=== PATIENT | male | born 1985 | race Caucasian/White ===

== ENCOUNTER 2020-06-16 18:14 | Emergency (ER) | payer OTHER, SELFPAY ==
--- NOTE | ~2020-06-16 | CT_ITS ---
EXAMINATION: CT HEAD WITHOUT CONTRAST CLINICAL INFORMATION: Left leg numbness COMPARISON: None TECHNIQUE: Contiguous axial imaging was performed from the skull base to vertex without intravenous administration of contrast. This CT examination was performed using dose optimization techniques as appropriate, variously including the following: *Automated exposure control *Adjustment of mA and/or kV according to patient size (this includes techniques or standardized protocols for targeted exams where dose is matched to indication/reason for exam; i.e. extremities or head) *Use of iterative reconstruction technique DLP: 780 mGy-cm FINDINGS: There is no evidence of acute intracranial hemorrhage or territorial infarction. No abnormal mass effect or midline shift is seen. Griffin to white matter differentiation is well preserved. No extra-axial fluid collections are identified. The ventricles are normal in size. There is no abnormal attenuation within the brain parenchyma. The osseous structures and soft tissues are normal. The mastoid air cells and visualized portions of the paranasal sinuses are well aerated. CT/CT head/brain wo con IMPRESSION: No acute intracranial pathology.
[2020-06-16 18:32] VITALS: BP 147/105; PULSE 87; RESP 18; TEMP 36.8; O2SAT 95; BMI 28.9
--- NOTE | 2020-06-16 19:20 | ECG_ITS ---
Test Reason : WEAKNESS Blood Pressure : / mmHG Vent. Rate : 074 BPM Atrial Rate : 074 BPM P-R Int : 176 ms QRS Dur : 112 ms QT Int : 380 ms P-R-T Axes : 043 050 044 degrees QTc Int : 421 ms Normal sinus rhythm with sinus arrhythmia Normal ECG No previous ECGs available Referred By: Harvey Alejo Electronically Signed By:Kain Joyner
--- NOTE | 2020-06-16 19:24 | ED_ITS ---
HPI - General Adult General Chief complaint: General Medical Stated complaint: numbness in leg Time Seen by Provider: 06/16/20 19:11 Source: patient Mode of arrival: ambulatory Limitations: no limitations History of Present Illness HPI narrative: 35-year-old male otherwise healthy, presented with 4 days of numbness in the left lower extremities but no weakness, patient started to have same feeling on the right lower extremities started since yesterday, patient is able to walk in steady gait, no weakness, only when he go upstairs and downstairs have no feeling how high his leg is going up or down, no drop foot. Declined recent trauma, no low back pain. Patient had back problem from his previous job that improved with physical therapy in the past, patient had no urinary incontinence, no stool incontinence. No fever, no chills, no history of IV drug abuse. Related Data Allergies Allergy/AdvReac Type Severity Reaction Status Date / Time No Known Allergies Allergy Unverified 12/26/19 15:37 Review of Systems Review of Systems: All other systems are reviewed and are negative Constitutional: Reports as per HPI and Reports no additional constitutional co mplaints Eyes: Reports as per HPI and Reports no additional eye complaints Reports system reviewed and no additional complaints, except as documented Cardiovascular: Reports as per HPI and Reports no additional cardiovascular complaints Respiratory: Reports as per HPI and Reports no additional respiratory complaints Gastrointestinal: Reports as per HPI and Reports no additional gastrointestinal complaints Genitourinary: Reports no additional female genitourinary complaints Musculoskeletal: Reports no additional musculoskeletal complaints Skin/Breast: Reports system reviewed and no additional complaints, except as docu Psychiatric: Reports no additional psychiatric complaints Endocrine: Reports no additional endocrine complaints Hematologic/Lymphatic: Reports no additional hematologic/lymphatic complaints Allergic/Immunologic: Reports no additional allergic/immunologic complaints Reports system reviewed and no additional complaints, except as documented and Reports Abnormal speech present [facility] Past Medical History Medical History No known health problems Social History Social History Smoked in Last 30 Days: No Use of substances other than those prescribed or required for medical reasons: Yes Substance Use Type: Marijuana Advance Directives: No Advance Directives Information Provided: Yes Physical Exam Vital Signs: Vital Signs: Last Vital Signs Temp 98.3 F 06/16/20 18:32 Pulse 87 06/16/20 18:32 Resp 18 06/16/20 18:32 BP 147/105 H 06/16/20 18:32 Pulse Ox 95 06/16/20 18:32 Body Mass Index 28.9 Vital signs have been reviewed as appeared to be correct. Blood pressure in the high range.. Heart rate normal. Respiration rate normal. Temperature normal. Oxygen saturation normal. Appearance: Alert. Oriented X3. No acute distress. Head: Normal external exam. Normocephalic. Atraumatic. No Pereira signs noted. No raccoon eyes noted Eyes: PERRLA. EOMI. Conjunctiva and sclera normal. Eyelids normal. ENT: TM's Normal. Pharynx normal. Uvula midline. Moist mucous membranes. No trismus noted. No drooling noted. No muffled voice noted. Neck: Normal inspection. Neck supple. FROM. No adenopathy. Thyroid Normal. No meningeal signs. No neck mass noted. CVS: Normal heart rate and rhythm. Heart sound normal. No murmurs noted. Pulses normal throughout. Respiratory: No respiratory distress. Painless inspiration. Breath sounds normal. No wheezes/rales/rhonchi noted. Chest nontender. No accessory muscle usage noted or decreased air movement noted. Abdomen: Soft and nontender. Bowel sounds normal in all 4 quadrants. No distention noted. No organomegaly noted. No visible injury noted. Back: No CVA tenderness. Full range of motion noted. Skin: Skin warm and dry. Normal skin color. Normal skin turgor. No rashes/lesions/lacerations noted. Extremities: No lower extremity edema. Extremities exhibit normal range of motion. Extremities nontender. Neuro: Oriented X 3. No motor deficit. No sensory deficit. Reflexes normal. NIH Stroke Scale Level of Consciousness: Alert Level of Consciousness Questions: Answers both questions correctly Level of Consciousness Commands: Performs both tasks correctly Best Gaze: Normal Visual: No visual loss Facial Palsy: Normal Motor Arm (Right): No drift Motor Arm (Left): No drift Motor Leg (Right): No drift Motor Leg (Left): No drift Limb Ataxia: Absent Sensory: Normal Best Language: No aphasia Dysarthia: Normal Extinction and Inattention: No abnormality Score: 0 Course Course Course Narrative: 35-year-old male otherwise healthy with normal neuro exam, NIH score is 0. Left lower extremities numbness for 5 days probably peripheral neuropathy related. Will discharge the patient to follow up with outpatient Neurology. Medical Decision Making Lab Data Result diagrams: 06/16/20 20:24 06/16/20 20:24 Labs: Lab Results 06/16/20 06/16/20 06/16/20 Range/Units 20:24 20:24 20:25 WBC 7.8 (4.8-10.8) X10*3/uL RBC 6.10 H (4.60-5.80) X10*6/uL Hgb 17.7 (14.0-18.0) g/dl Hct 50.3 (42-52) % MCV 82.5 (80-98) fL MCH 29.0 (27.0-33.0) pg MCHC 35.2 (31.0-36.0) g/dl RDW 12.5 (11.0-16.0) % Plt Count 260 (160-400) X10*3/uL MPV 10.7 (9.4-12.4) fL Immature Gran % (Auto) 0.4 (0.0-0.4) % Neut % (Auto) 71.5 (45-73) % Lymph % (Auto) 17.6 L (20-40) % [place] % (Auto) 9.1 (2-11) % Eos % (Auto) 0.8 (0-4) % Baso % (Auto) 0.6 (0-2) % Lymph # (Auto) 1.4 (1.2-4.9) X10*3/uL [place] # (Auto) 0.7 (0.1-1.2) X10*3/uL Eos # (Auto) 0.1 (0.0-0.4) X10*3/uL Baso # (Auto) 0.1 (0.0-0.2) X10*3/uL Abs Immat Gran (auto) 0.03 (0.00-0.03) X10*3/uL Absolute Neuts (auto) 5.6 (2.0-8.3) X10*3/uL Absolute Nucleated RBC 0.000 (0.0-0.012) X10*3/uL Nucleated RBC % (auto) 0.0 (0.0-0.2) /100WBC Sodium 140 (135-145) mmol/L Potassium 3.8 (3.3-5.1) mmol/L Chloride 101 (96-108) mmol/L Carbon Dioxide 30 H (22-29) mmol/L Anion Gap 13 (12-20) BUN 13 (9-16) mg/dL Creatinine 1.08 (0.5-1.4) mg/dL Estim Creat Clear Calc 103.2 Estimated GFR > 60 Random Glucose 108 (60-115) mg/dL Calcium 10.2 (8.4-10.2) mg/dL Phosphorus (2.7-4.5) mg/dL Magnesium (1.6-2.6) mg/dL Total Creatine Kinase (38-174) U/L Troponin I High Sens < 3.5 (<3.5-35.0) ng/L Lipase 25 (8-78) U/L 06/16/20 06/16/20 Range/Units 20:25 20:25 WBC (4.8-10.8) X10*3/uL RBC (4.60-5.80) X10*6/uL Hgb (14.0-18.0) g/dl Hct (42-52) % MCV (80-98) fL MCH (27.0-33.0) pg MCHC (31.0-36.0) g/dl RDW (11.0-16.0) % Plt Count (160-400) X10*3/uL MPV (9.4-12.4) fL Immature Gran % (Auto) (0.0-0.4) % Neut % (Auto) (45-73) % Lymph % (Auto) (20-40) % [place] % (Auto) (2-11) % Eos % (Auto) (0-4) % Baso % (Auto) (0-2) % Lymph # (Auto) (1.2-4.9) X10*3/uL [place] # (Auto) (0.1-1.2) X10*3/uL Eos # (Auto) (0.0-0.4) X10*3/uL Baso # (Auto) (0.0-0.2) X10*3/uL Abs Immat Gran (auto) (0.00-0.03) X10*3/uL Absolute Neuts (auto) (2.0-8.3) X10*3/uL Absolute Nucleated RBC (0.0-0.012) X10*3/uL Nucleated RBC % (auto) (0.0-0.2) /100WBC Sodium (135-145) mmol/L Potassium (3.3-5.1) mmol/L Chloride (96-108) mmol/L Carbon Dioxide (22-29) mmol/L Anion Gap (12-20) BUN (9-16) mg/dL Creatinine (0.5-1.4) mg/dL Estim Creat Clear Calc Estimated GFR Random Glucose (60-115) mg/dL Calcium Cancelled (8.4-10.2) mg/dL Phosphorus 3.4 (2.7-4.5) mg/dL Magnesium 2.3 (1.6-2.6) mg/dL Total Creatine Kinase 161 (38-174) U/L Troponin I High Sens (<3.5-35.0) ng/L Lipase (8-78) U/L Imaging Data CT scan - head: Radiologist's impression: No acute intracranial pathology. ECG Data Interpretation: Normal sinus rhythm with sinus arrhythmia at 74 beats per minute, normal axis deviation, normal intervals, no ST-T changes. Discharge Plan Discharge Clinical Impression: Numbness and tingling of left lower extremity Patient Disposition: Home, Self-Care Instructions: Paresthesia (ED) Referrals: Domi Coates MD [Primary Care Provider] - 2 days Naun Miller MD [Physician] - 2 days
[2020-06-16 20:00] VITALS: BP 136/94; PULSE 87; RESP 18; TEMP 36.8; O2SAT 95
[2020-06-16 20:30] LABS: MANUAL DIFF FLAG NO
[2020-06-16 20:32] LABS: Basophils Absolute Auto 0.1 X10*3/uL (0.0-0.2); Basophils Percent Auto 0.6 % (0-2); Eosinophils Absolute Auto 0.1 X10*3/uL (0.0-0.4); Eosinophils Percent Auto 0.8 % (0-4); Hematocrit 50.3 % (42-52); Hemoglobin 17.7 g/dl (14.0-18.0); Imm Gran Abs Auto 0.03 X10*3/uL (0.00-0.03); Imm Gran Pct Auto 0.4 % (0.0-0.4); Lymphocytes Absolute Auto 1.4 X10*3/uL (1.2-4.9); Lymphocytes Percent Auto 17.6 % (20-40); Mean Corpuscular HGB Conc 35.2 g/dl (31.0-36.0); Mean Corpuscular Volume 82.5 fL (80-98); Mean Platelet Volume 10.7 fL (9.4-12.4); Monocytes Absolute Auto 0.7 X10*3/uL (0.1-1.2); Monocytes Percent Auto 9.1 % (2-11); Neutrophils Absolute Auto 5.6 X10*3/uL (2.0-8.3); Neutrophils Percent Auto 71.5 % (45-73); Platelet Count 260 X10*3/uL (160-400); Red Cell Distribution Width 12.5 % (11.0-16.0); White Blood Count 7.8 X10*3/uL (4.8-10.8)
[2020-06-16] MEDS: 0.9 % Sodium Chloride 1,000 ML 999 ML IVCONT (20:55)
[2020-06-16 21:24] LABS: Magnesium 2.3 mg/dL (1.6-2.6); Phosphorus 3.4 mg/dL (2.7-4.5)
[2020-06-16 21:24] LABS: Anion Gap 13 (12-20); Blood Urea Nitrogen 13 mg/dL (9-16); Calcium 10.2 mg/dL (8.4-10.2); Carbon Dioxide 30 mmol/L (22-29); Chloride 101 mmol/L (96-108); Creatinine Clr Calc Pharmacy 103.2; Estimated Glomerular Filt Rate > 60; Glucose Random 108 mg/dL (60-115); Lipase 25 U/L (8-78); Potassium 3.8 mmol/L (3.3-5.1); Sodium 140 mmol/L (135-145)
[2020-06-16 21:31] LABS: Troponin-I High Sensitivity < 3.5 ng/L (<3.5-35.0)
== END 2020-06-16 22:17 | disposition home or self-care (01) ==
PROVIDERS: Emergency Provider Emergency Medicine; PCP Internal Medicine
DX: R20.2 Paresthesia of skin (principal); F12.90 Cannabis use, unspecified, uncomplicated
CPT/HCPCS: 36415; 70450; 80048; 82310; 82550; 83690; 83735; 84100; 84484; 85025; 93005; 96360; 99284

== ENCOUNTER 2020-11-20 11:24 | Outpatient (REF) | payer OTHER, SELFPAY | END 2020-11-20 11:25 | disposition home or self-care (01) | LOC: HO.LNP 11:24 | PROVIDERS: Visit Provider Hospitalist | DX: H10.9 Unspecified conjunctivitis (principal); Z20.822 Contact with and (suspected) exposure to COVID-19 | CPT/HCPCS: U0003; U0005 ==

== ENCOUNTER 2022-09-23 06:32 | Emergency (ER) | payer SELFPAY ==
--- NOTE | ~2022-09-23 | XR_ITS ---
EXAMINATION: XR CHEST CLINICAL INFORMATION: 37-year-old male with chest pain COMPARISON: None available. TECHNIQUE: Frontal view of the chest was obtained. FINDINGS: No significant abnormality is noted involving the heart, lungs, mediastinum, bony thorax or soft tissues. XR/XR chest 1V IMPRESSION: Unremarkable examination.
[2022-09-23 06:36] VITALS: BP 144/97; PULSE 79; RESP 18; TEMP 36.1; O2SAT 94; BMI 33.2
--- NOTE | 2022-09-23 06:38 | ECG_ITS ---
Test Reason : CP Blood Pressure : / mmHG Vent. Rate : 075 BPM Atrial Rate : 075 BPM P-R Int : 170 ms QRS Dur : 116 ms QT Int : 390 ms P-R-T Axes : 031 -19 038 degrees QTc Int : 435 ms Normal sinus rhythm Minimal voltage criteria for LVH, may be normal variant ( Granite product ) Borderline ECG When compared with ECG of 16-JUN-2020 19:36, No significant change was found Referred By: Domi Coates Electronically Signed By:DARA JONES MD
--- NOTE | 2022-09-23 06:48 | ED.CHESTPAIN ---
HPI - Chest Pain General Chief Complaint: Chest Pain Stated Complaint: Chest pain Time Seen by Provider: 09/23/22 06:39 Source: patient Mode of arrival: ambulatory Limitations: no limitations History of Present Illness HPI narrative: Patient is a 37 year old male with no significant past medical history presenting with left shoulder and neck pain after standing up from his desk this morning. He states that he stood up from his desk this morning and felt a sudden onset of sharp pain in his left shoulder around his shoulder blade and the left side of his neck also L sided chest deep discomfort per patient . He denies radiation down the arm and rates current pain a 2/10. He states that since symptom onset his pain has improved. He states that he has experienced chest tightness for years however denies any increase in this today. He denies additional symptoms at this time including shortness of breath, fever, chills, abdominal pain, nausea, vomiting, numbness, tingling, changes in vision, headaches. She reports the reason he wanted to come in today is because he was speaking to a co-worker who has had multiple heart attacks and this made him nervous. Related Data Home Medications Medication Instructions Recorded Confirmed cetirizine 10 mg tablet (Zyrtec) 10 mg PO DAILY PRN 11/20/20 Previous Rx's Medication Instructions Recorded sulfacetamide sodium 10 % eye drops 2 drp ophthalmic (eye) Q4H #30 mL 11/20/20 cyclobenzaprine 10 mg tablet 10 mg PO BEDTIME PRN muscle spasm 09/23/22 #7 tabs ketorolac 10 mg tablet 10 mg PO TID PRN pain 5 days #15 09/23/22 tabs lidocaine 5 % topical patch 1 patch topical DAILY PRN pain #15 09/23/22 ea Allergies Allergy/AdvReac Type Severity Reaction Status Date / Time No Known Allergies Allergy Verified 11/20/20 08:59 Review of Systems Review of Systems: Constitutional : No Weight loss, No Fever, No Chills, No Fatigue, No Malaise Cardiovascular : + Chest Pain, No SOB, No Dyspnea on Exertion, No Orthopnea, No Edema, No Palpitations Respiratory : No Cough, No Sputum, No Wheezing Gastrointestinal : No Nausea, No Vomiting, No Diarrhea, No Constipation, No abdominal Pain, No Hematochezia, No Melena Genitourinary : No Dysuria, No Urinary Frequency, No Hematuria, Musculoskeletal : + joint pain, No Myalgias, No Joint Swelling Skin : No Skin Lesions, No rash Neuro : No Weakness, No Numbness, No Dizziness, No Headache Psych : No Anxiety/Panic, No Depression All other systems reviewed and are negative Yes all other systems are reviewed and are negative [facility] Past Medical History Attestation statement: The following information was validated with the patient. Source: old records reviewed and nursing notes reviewed Medical History No known health problems Social History Social History Alcohol intake: never Smoked in Last 30 Days: Yes Use of substances other than those prescribed or required for medical reasons: No Substance Use Type: Marijuana Advance Directives: No Advance Directives Information Provided: Yes Physical Exam Vital Signs: Vital Signs: Last Vital Signs Temp 98.1 F 09/23/22 08:23 Pulse 69 09/23/22 08:23 Resp 13 09/23/22 08:23 BP 159/70 H 09/23/22 08:23 Pulse Ox 96 09/23/22 08:23 O2 Del Method Room Air 09/23/22 08:23 BMI result Body Mass Index 33.2 vital signs stable although vitals say 94% patient 97% even after ambulation in room ( i suspect 94% entered in error) Appearance: Alert.? Oriented X3.? No acute distress.? Head: Normocephalic, atraumatic, no step-offs or deformities Eyes: Pupils equal, round and reactive to light.? ENT: Pharynx normal.? Neck: Normal inspection.? Neck supple.? No tenderness to palpation to cervical paraspinous muscles. CVS: Normal heart rate and rhythm.? Pulses normal.? No tenderness to palpation to anterior chest wall. Respiratory: No respiratory distress.? Breath sounds normal.? Abdomen: Soft and nontender.? Skin: Skin warm and dry.? Normal skin color.? Normal skin turgor.? Extremities: No tenderness to palpation over left shoulder blade, left neck. No lower extremity edema. Negative Coral bilaterally, No calf ttp. 5/5 strength to bilateral upper and lower extremities Back: No midline tenderness, no C-spine tenderness, full range of motion, no CVA tenderness bilaterally Neuro: Oriented X 3.? No motor deficit.? No sensory deficit. CN 2-12 intact Course Reevaluation(s) Reevaluation #1: CBC within normal limits. Chemistry with no acute findings. Troponin negative x2, EKG nonischemic unlikely ACS. Patient PERC negative unlikely PE. This is likely anxiety or musculoskeletal in nature. Chest x-ray unremarkable. On re-evaluation patient states he is feeling much better. Educated patient on diagnosis and treatment plan, answered all question, patient verbalizes understanding. At this time patient will be discharged home, advised to return with new or worsening symptoms. Educated on worrisome signs and symptoms and when to return. At this time I feel comfortable discharge home. Time: 10:36 Medications Administered Discontinued Medications Generic Name Dose Route Start Last Admin Trade Name Idalia PRN Reason Stop Dose Admin Ketorolac Tromethamine 30 mg 09/23/22 07:05 09/23/22 07:28 Ketorolac Tromethamine 15 Mg/Ml Vial IM 09/23/22 07:06 Not Given ONCE ONE Lidocaine 1 patch 09/23/22 07:05 09/23/22 07:29 Lidocaine 4 % Patch Adh..Patch TRANSDERMA 09/23/22 07:06 Not Given ONCE ONE Protocol Medical Decision Making Medical Decision Making [facility] Narrative: 37-year-old male presents with sudden onset left-sided chest pain, left shoulder pain, left scapula pain that started at approximately 01:00, no cardiac history, no fevers, chills or shortness of breath Physical exam benign Likely musculoskeletal in nature vs anxiety. Unlikely ACS, PE, patient PERC negative. Unlikely endocarditis, pericarditis, myocarditis. No signs of dissection. PERC 0- No need for further workup, as <2% chance of PE. If no criteria are positive and clinician?s pre-test probability is <15%, PERC Rule criteria are satisfied. Plan- labs, imaging. Differential Diagnosis Differential Diagnoses: The differential diagnosis associated with the presentation includes Likely musculoskeletal in nature vs anxiety. Unlikely ACS, PE, patient PERC negative. Unlikely endocarditis, pericarditis, myocarditis. No signs of dissection. Admission/Observation Consideration of admission/observation: Escalation of care including admission/observation considered Lab Data [facility] Lab Attestation statement: I reviewed the patient's lab results. 09/23/22 06:50 09/23/22 06:50 Labs: Lab Results 06/09/23/22 09/23/22 Range/Units 06:50 06:50 06:50 WBC 7.3 (4.8-10.8) X10*3/uL RBC 5.99 H (4.60-5.80) X10*6/uL Hgb 17.9 (14.0-18.0) g/dl Hct 50.5 (42.0-52.0) % MCV 84.3 (80.0-98.0) fL MCH 29.9 (27.0-33.0) pg MCHC 35.4 (31.0-36.0) g/dl RDW 12.9 (11.0-16.0) % Plt Count 248 (160-400) X10*3/uL MPV 10.9 (9.4-12.4) fL Immature Gran % (Auto) 0.6 H (0.0-0.4) % Neut % (Auto) 63.9 (45-73) % Lymph % (Auto) 25.0 (20-40) % [place] % (Auto) 8.1 (2-11) % Eos % (Auto) 1.7 (0-4) % Baso % (Auto) 0.7 (0-2) % Lymph # (Auto) 1.8 (1.2-4.9) X10*3/uL [place] # (Auto) 0.6 (0.1-1.2) X10*3/uL Eos # (Auto) 0.1 (0.0-0.4) X10*3/uL Baso # (Auto) 0.1 (0.0-0.2) X10*3/uL Abs Immat Gran (auto) 0.04 H (0.00-0.03) X10*3/uL Absolute Neuts (auto) 4.6 (2.0-8.3) x10*3/uL Absolute Nucleated RBC 0.000 (0.0-0.012) X10*3/uL Nucleated RBC % (auto) 0.0 (0.0-0.2) /100WBC Sodium 138 (135-145) mmol/L Potassium 3.9 (3.3-5.1) mmol/L Chloride 103 (96-108) mmol/L Carbon Dioxide 23 (22-29) mmol/L Anion Gap 16 (12-20) BUN 18 H (9-16) mg/dL Creatinine 0.89 (0.5-1.4) mg/dL Estim Creat Clear Calc 131.2 Estimated GFR > 60 Random Glucose 98 (60-115) mg/dL Calcium 10.1 (8.4-10.2) mg/dL Troponin I High Sens < 2.7 (<3.5-35.0) ng/L 09/23/22 Range/Units 10:02 WBC (4.8-10.8) X10*3/uL RBC (4.60-5.80) X10*6/uL Hgb (14.0-18.0) g/dl Hct (42.0-52.0) % MCV (80.0-98.0) fL MCH (27.0-33.0) pg MCHC (31.0-36.0) g/dl RDW (11.0-16.0) % Plt Count (160-400) X10*3/uL MPV (9.4-12.4) fL Immature Gran % (Auto) (0.0-0.4) % Neut % (Auto) (45-73) % Lymph % (Auto) (20-40) % [place] % (Auto) (2-11) % Eos % (Auto) (0-4) % Baso % (Auto) (0-2) % Lymph # (Auto) (1.2-4.9) X10*3/uL [place] # (Auto) (0.1-1.2) X10*3/uL Eos # (Auto) (0.0-0.4) X10*3/uL Baso # (Auto) (0.0-0.2) X10*3/uL Abs Immat Gran (auto) (0.00-0.03) X10*3/uL Absolute Neuts (auto) (2.0-8.3) x10*3/uL Absolute Nucleated RBC (0.0-0.012) X10*3/uL Nucleated RBC % (auto) (0.0-0.2) /100WBC Sodium (135-145) mmol/L Potassium (3.3-5.1) mmol/L Chloride (96-108) mmol/L Carbon Dioxide (22-29) mmol/L Anion Gap (12-20) BUN (9-16) mg/dL Creatinine (0.5-1.4) mg/dL Estim Creat Clear Calc Estimated GFR Random Glucose (60-115) mg/dL Calcium (8.4-10.2) mg/dL Troponin I High Sens < 2.7 (<3.5-35.0) ng/L Critical Care Time Critical Care Time Critical Care Time: No Discharge Plan Discharge Clinical Impression: Chest pain Patient Disposition: Home, Self-Care Instructions: Chest Pain (ED), Chest Wall Pain (ED) Additional Instructions: Take your medications as prescribed. If you were prescribed antibiotics today, it is important that you take your medication to their entirety, do not skip any doses, do not finish them early. Follow-up with your primary care provider this week. Follow-up with cardiology if pain persists. Return to the emergency department with new or worsening symptoms. Such as fevers, chills, chest pain, shortness of breath, nausea, vomiting, dizziness, headache, vision changes, lethargy In case of emergency call 911 Cardiac enzymes normal X2. Normal EKG. Reassuring work up here in the department Toradol has been sent to your pharmacy, you tolerated this well in the department. Please take this as prescribed do not take this with ibuprofen, or other NSAIDs, do not mix this with alcohol. Side effects of this medication including increased risk for bleeding and possible kidney injury. Cyclobenzaprine as a muscle relaxer can make you sleepy, do not take this with alcohol or other sedatives. Prescriptions: New cyclobenzaprine 10 mg tablet 10 mg PO BEDTIME PRN (Reason: muscle spasm) Qty: 7 0RF ketorolac 10 mg tablet 10 mg PO TID PRN (Reason: pain) 5 Days Qty: 15 0RF lidocaine 5 % adhesive patch,medicated 1 patch topical DAILY PRN (Reason: pain) Qty: 15 0RF Rx Instructions: leave on most painful area for up to 12 hrs No Action sulfacetamide sodium 10 % drops 2 drp ophthalmic (eye) Q4H Qty: 30 0RF Rx Instructions: both eyes [place] [facility] [place] [facility] [place] Group] - 3 days Domi Coates MD [Primary Care Provider] - 2 days Stand Alone Forms: Work/School Release
[2022-09-23 06:55] LABS: MANUAL DIFF FLAG NO
[2022-09-23 06:56] LABS: Basophils Absolute Auto 0.1 X10*3/uL (0.0-0.2); Basophils Percent Auto 0.7 % (0-2); Eosinophils Absolute Auto 0.1 X10*3/uL (0.0-0.4); Eosinophils Percent Auto 1.7 % (0-4); Hematocrit 50.5 % (42.0-52.0); Hemoglobin 17.9 g/dl (14.0-18.0); Imm Gran Abs Auto 0.04 X10*3/uL (0.00-0.03); Imm Gran Pct Auto 0.6 % (0.0-0.4); Lymphocytes Absolute Auto 1.8 X10*3/uL (1.2-4.9); Mean Corpuscular HGB Conc 35.4 g/dl (31.0-36.0); Mean Corpuscular Hemoglobin 29.9 pg (27.0-33.0); Mean Corpuscular Volume 84.3 fL (80.0-98.0); Mean Platelet Volume 10.9 fL (9.4-12.4); Monocytes Absolute Auto 0.6 X10*3/uL (0.1-1.2); Monocytes Percent Auto 8.1 % (2-11); Neutrophils Absolute Auto 4.6 x10*3/uL (2.0-8.3); Neutrophils Percent Auto 63.9 % (45-73); Platelet Count 248 X10*3/uL (160-400); Red Blood Count 5.99 X10*6/uL (4.60-5.80); Red Cell Distribution Width 12.9 % (11.0-16.0); White Blood Count 7.3 X10*3/uL (4.8-10.8)
[2022-09-23 07:14] LABS: Anion Gap 16 (12-20); Blood Urea Nitrogen 18 mg/dL (9-16); Calcium 10.1 mg/dL (8.4-10.2); Carbon Dioxide 23 mmol/L (22-29); Chloride 103 mmol/L (96-108); Creatinine Clr Calc Pharmacy 131.2; Estimated Glomerular Filt Rate > 60; Glucose Random 98 mg/dL (60-115); Potassium 3.9 mmol/L (3.3-5.1); Sodium 138 mmol/L (135-145)
[2022-09-23 07:23] VITALS: PULSE 74
[2022-09-23 07:31] LABS: Troponin-I High Sensitivity < 2.7 ng/L (<3.5-35.0)
[2022-09-23 08:23] VITALS: BP 159/70; PULSE 69; RESP 13; TEMP 36.7; O2SAT 96
[2022-09-23 10:32] LABS: Troponin-I High Sensitivity < 2.7 ng/L (<3.5-35.0)
[2022-09-23 10:44] VITALS: BP 137/75; PULSE 73; RESP 12; TEMP 36.7; O2SAT 95
== END 2022-09-23 10:49 | disposition home or self-care (01) ==
PROVIDERS: Physician Assistant; Emergency Provider Emergency Medicine; PCP Internal Medicine
DX: R07.89 Other chest pain (principal); M25.512 Pain in left shoulder; Z79.899 Other long term (current) drug therapy
CPT/HCPCS: 36415; 71045; 80048; 84484; 85025; 93005; 99285

== ENCOUNTER 2023-05-10 08:06 | Outpatient (AMB) | payer OTHER, SELFPAY ==
--- NOTE | 2023-05-10 08:09 | AM.OFFWIN_ITS ---
Intake Vital Signs 05/10/23 08:10 Height 5 ft 9 in Weight 215 lb BMI 31.7 BP 122/74 Blood Pressure Location Lt brachial Position Sitting Pulse 74 Pulse Source Pulse Oximeter Temp 97.9 F Temp Source Temporal Artery Scan Pulse Oximetry (%) 96 Intake Visit Reasons: EP AB/Rectal discomfort Intake Note: pt is here for c.o right abd pain/discomfort 1 month, rectal pressure, pt states he feels like he has to poop. denies diet change, denies traveling, and constipation Patient Tobacco Use Status: Never used Tobacco Allergies No Known Allergies Allergy (Verified 05/10/23 08:18) Do you need a note to return to daycare/school/sports/work: Yes HPI HPI Comments History of Present Illness Details This is a 38-year-old male with no stated past medical or surgical history presenting for evaluation of right upper quadrant abdominal pain that he has had intermittently for the past 1 month coupled with increased eructations and flatulence. Patient does not identify that his symptoms are consistent with p.o. intake. Patient also reports having rectal pressure that comes and goes over the past 6 days. Patient states that his rectal pressure is worse when sitting. Patient reports having hemorrhoids previously but does not believe he has hemorrhoids at this time. Patient's last bowel movement was today and was of normal caliber. Patient denies having any fevers, chills, nausea, vomiting, diarrhea, dark or bloody stools. [facility] Medical History No known health problems Social History Alcohol intake: never Patient Tobacco Use Status: Never used Tobacco Substance Use Type: Marijuana Review of Systems Const All systems reviewed & are unremarkable except as noted in HPI and below Reports no additional complaints Eyes Reports no additional complaints ENT Reports no additional complaints Card Reports no additional complaints Resp Reports no additional complaints GI Denies melena, Denies change in bowel habits, Denies tenesmus, Denies change in stool character, Reports excessive flatus, Reports heartburn, Denies loose stools, Denies nausea and Denies vomiting Reports no additional complaints Psych Reports no additional complaints Physical Exam Vital Signs: Last Vital Signs Temp 97.9 F 05/10/23 08:10 Pulse 74 05/10/23 08:10 BP 122/74 05/10/23 08:10 Pulse Ox 96 05/10/23 08:10 BMI result Body Mass Index 31.7 Const General: cooperative, healthy appearing, comfortable and no acute distress Nutritional Appearance: obese Orientation/consciousness: patient oriented x3 Limitations: no limitations Resp Effort & Inspection: normal respiratory effort Auscultation: clear to auscultation bilaterally Cardio Rate: regular rate Rhythm: regular rhythm GI Inspection: Yes normal to inspection, No abdominal wall ecchymosis and No distended Palpation (GI): Soft to palpation, not firm, Tenderness to palpation present (GI) in the epigastrum; not in the RUQ, not suprapubicly, Oconnor's sign negative and with no rebound tenderness, no guarding and no masses Auscultation: normal bowel sounds Rectal Exam - Male: Yes visual inspection normal, Yes normal sphincter tone, No External hemorrhoid(s) present, No Internal hemorrhoid(s) present, No Rectal prolapse, No Lesions present (GI), No Fistula present (GI), No fecal impaction, No Anal fissure(s) present, No hemorrhoids and No tenderness Skin General skin exam: no rashes or lesions noted Neuro General: patient oriented x3 Psych Appearance: grossly normal Mental Status: mental status grossly normal Insight: Good insight present (Psych) Judgement: Good judgement present (Psych) Assessment & Plan Assessment & Plan (1) Gastroesophageal reflux disease: Code(s): K21.9 - Gastro-esophageal reflux disease without esophagitis Qualifiers: Esophagitis presence: without esophagitis Qualified Code(s): K21.9 - Gastro-esophageal reflux disease without esophagitis Plan: There is no clinical evidence of cholelithiasis or cholecystitis and patient's history coupled with his examination is most consistent with gastroesophageal reflux disease. (2) Rectal pressure: Comment: No abnormalities noted on rectal examination. Code(s): R19.8 - Other specified symptoms and signs involving the digestive system and abdomen Plan: No further treatment at this time; patient to seek routine preventative care with a PCP for ongoing management as needed. Plan Omeprazole 40 mg daily x2 weeks Medications: New omeprazole 40 mg PO DAILY 15 caps 0RF Coding Level of Care Code New Pt Level 3 (98050) Diagnoses Gastroesophageal reflux disease without esophagitis K21.9 Esophagitis presence: without esophagitis Rectal pressure R19.8 Time Spent (min) 20
[2023-05-10 08:10] VITALS: BP 122/74; PULSE 74; TEMP 36.6; O2SAT 96; BMI 31.7
== END 2023-05-10 09:17 | disposition home or self-care (01) ==
PROVIDERS: PCP Internal Medicine; Visit Provider Physician Assistant
DX: K21.9 Gastro-esophageal reflux disease without esophagitis (principal); R19.8 Other specified symptoms and signs involving the digestive system and abdomen
CPT/HCPCS: 99203

== ENCOUNTER 2023-05-24 12:15 | Outpatient (AMB) | payer OTHER, SELFPAY ==
[2023-05-24 12:25] VITALS: BP 118/76; PULSE 77; O2SAT 97; BMI 32.9
--- NOTE | 2023-05-24 12:25 | MHC.PC.OV ---
Vital Signs 05/24/23 12:25 Height 5 ft 9 in Weight 223 lb 2 oz BMI 32.9 BP 118/76 Blood Pressure Location Lt brachial Position Sitting Pulse 77 Pulse Source Pulse Oximeter Pulse Oximetry (%) 97 Oxygen Delivery Method Room Air Intake Visit Reasons: follow up from walk in Intake Note: Pt is here for a follow up from the walk-in for abd pain Allergies No Known Allergies Allergy (Verified 05/24/23 12:27) Medication List - Last Reconciled 05/24/23 by Domi Coates MD omeprazole 40 mg PO DAILY Tobacco use date assessed: 05/24/23 Dental Screening Dental Screen Date: 05/24/23 Did you have a dental visit in the last 12 months?: No Did you have a dental problem in the last 6 months where you did not have access to dental care?: No Was dental information given to patient?: No HPI follow up from walk in HPI Details Pt presents for the follow-up of walk-in visit for left upper quadrant abdominal discomfort / for a few months, constant not associated with position change of food intake. Patient denies nausea vomiting change in bowel habits hematochezia melena dysuria hematuria. Patient has been taking omeprazole for 2 weeks without any significant change in his symptoms. He had sensation of rectal discomfort which resolved after omeprazole. [facility], [facility] Medical History No known health problems Social History Alcohol intake: never Patient Tobacco Use Status: Never used Tobacco e-Cigarette/Vaping Use: Currently Using Substance Use Type: Marijuana service: Yes Current occupational status: employed Current occupation: [employer] Current occupational exposures/hazards: Yes Cognitive needs: No Hearing needs: No Vision needs: No Review of Systems Const All systems reviewed & are unremarkable except as noted in HPI and below Reports no additional complaints Eyes Reports no additional complaints ENT Reports no additional complaints Card Reports no additional complaints Resp Reports no additional complaints GI Reports no additional complaints Physical exam (Primary Care) Vital Signs: Last Vital Signs Pulse 77 05/24/23 12:25 BP 118/76 05/24/23 12:25 Pulse Ox 97 05/24/23 12:25 Oxygen Delivery Method Room Air 05/24/23 12:25 BMI result Body Mass Index 32.9 Tobacco/Smoking Status: Tobacco use Status Tobacco use date assessed 05/24/23 05/24/23 12:30 Patient Tobacco Use Status Never used Tobacco 05/24/23 12:27 e-Cigarette/Vaping Use Currently Using 05/24/23 12:30 Const General: no acute distress HENMT Head: Yes normal to inspection General nose exam: Normal external nose present Eyes General: appearance normal, both eyes and all related structures Resp Effort & Inspection: normal respiratory effort Auscultation: clear to auscultation bilaterally Cardio Rhythm: regular rhythm Heart sounds: S1 normal heart sound present and S2 normal heart sound present GI Inspection: Yes normal to inspection Palpation (GI): Soft to palpation, Tenderness to palpation present (GI) in the RUQ; Oconnor's sign negative and No Rebound tenderness present Percussion: Yes normal to percussion Auscultation: normal bowel sounds General: Yes Bimanual renal exam normal bilaterally Assessment and Plan Assessment & Plan (1) Abdominal pain: Code(s): R10.9 - Unspecified abdominal pain Plan: For persistent abdominal discomfort check basic blood work urinalysis liver ultrasound. Patient was advised to noticed any correlation of the pain with food intake or body position Orders: Orders UA w Microscopic Today R10.9 - Unspecified abdominal pain Comprehensive [place]. Panel Fast Today R10.9 - Unspecified abdominal pain Complete Blood Count Auto Diff Today R10.9 - Unspecified abdominal pain Lipid Panel Today R10.9 - Unspecified abdominal pain US abdomen limited Today R10.9 - Unspecified abdominal pain Coding Level of Care Code Est Pt Level 3 (15181) Diagnoses Abdominal pain R10.9
== END 2023-05-24 15:10 | disposition home or self-care (01) ==
PROVIDERS: PCP Internal Medicine; Visit Provider Internal Medicine
DX: R10.9 Unspecified abdominal pain (principal)
CPT/HCPCS: 99213

== ENCOUNTER 2023-05-25 07:35 | Outpatient (REF) | payer OTHER, SELFPAY ==
[2023-05-25 11:37] LABS: MANUAL DIFF FLAG NO
[2023-05-25 11:53] LABS: Basophils Percent Auto 0.4 % (0-2); Eosinophils Absolute Auto 0.1 X10*3/uL (0.0-0.4); Eosinophils Percent Auto 1.2 % (0-4); Hematocrit 49.2 % (42.0-52.0); Imm Gran Abs Auto 0.04 X10*3/uL (0.00-0.03); Imm Gran Pct Auto 0.6 % (0.0-0.4); Lymphocytes Absolute Auto 1.5 X10*3/uL (1.2-4.9); Lymphocytes Percent Auto 22.3 % (20-40); Mean Corpuscular HGB Conc 34.6 g/dl (31.0-36.0); Mean Corpuscular Hemoglobin 29.2 pg (27.0-33.0); Mean Corpuscular Volume 84.4 fL (80.0-98.0); Mean Platelet Volume 10.8 fL (9.4-12.4); Monocytes Absolute Auto 0.6 X10*3/uL (0.1-1.2); Monocytes Percent Auto 8.3 % (2-11); Neutrophils Absolute Auto 4.6 x10*3/uL (2.0-8.3); Neutrophils Percent Auto 67.2 % (45-73); Platelet Count 248 X10*3/uL (160-400); Red Blood Count 5.83 X10*6/uL (4.60-5.80); Red Cell Distribution Width 13.2 % (11.0-16.0); White Blood Count 6.8 X10*3/uL (4.8-10.8)
[2023-05-25 11:55] LABS: Alanine Aminotransferase 51 U/L (0-40); Albumin Level 4.5 g/dL (3.5-5.0); Alkaline Phosphatase 44 U/L (39-117); Anion Gap 14 (12-20); Aspartate Amino Transferase 28 U/L (5-37); Bilirubin Total 0.4 mg/dL (0.0-1.0); Blood Urea Nitrogen 16 mg/dL (9-16); Carbon Dioxide 30 mmol/L (22-29); Chloride 99 mmol/L (96-108); Cholesterol 263 mg/dL (<200); Estimated Glomerular Filt Rate > 60; Glucose Fasting 85 mg/dL (60-99); HDL Cholesterol 43 mg/dL (>40); LDL Cholesterol Calculated 190 mg/dL (<100); Sodium 139 mmol/L (135-145); Total Protein 8.1 g/dL (6.5-8.0); Triglycerides 153 mg/dL (<150)
== END 2023-05-25 07:36 | disposition home or self-care (01) ==
LOC: HO.HMGCLDS 07:35
PROVIDERS: PCP Internal Medicine; Visit Provider Internal Medicine
DX: R10.9 Unspecified abdominal pain (principal)
CPT/HCPCS: 36415; 80053; 80061; 81001; 85025

== ENCOUNTER 2023-05-25 23:25 | Outpatient (REF) | payer OTHER, SELFPAY ==
[2023-05-26 11:42] LABS: Appearance Urine Turbid; Color Urine Yellow; Glucose Urine UA Negative (Negative); Leukocyte Esterase Urine Negative (Negative); Nitrite Urine Negative (Negative); Urine Blood Negative (Negative); Urine Ketones Negative (Negative); Urine Protein Negative (Neg-Trace)
[2023-05-26 11:44] LABS: Bacteria Urine None Seen (None Seen); Hyaline Casts Urine 0-2 /LPF (0-2); RBC Urine 0-2 /HPF (0-2); Squamous Epithelial Cell Urine 0-2 /HPF (0-2); WBC Urine 0-5 /HPF (0-5)
== END 2023-05-25 23:26 | disposition home or self-care (01) ==
LOC: HO.HMGCLNP 23:25
PROVIDERS: PCP Internal Medicine; Visit Provider Internal Medicine
DX: R10.9 Unspecified abdominal pain (principal)
CPT/HCPCS: 81001

== ENCOUNTER 2023-06-06 08:10 | Outpatient (REF) | payer OTHER, SELFPAY ==
--- NOTE | ~2023-06-06 | US_ITS ---
EXAMINATION: US ABDOMEN LIMITED CLINICAL INFORMATION: Unspecified abdominal pain. COMPARISON: CT abdomen and pelvis 11/24/2016. TECHNIQUE: Real-time imaging of the right upper quadrant abdominal viscera. Limited visualization due to bowel gas. FINDINGS: PANCREAS: Normal. LIVER: Increased hepatic parenchymal heterogeneity and echogenicity could be associated with hepatocellular disease/hepatic steatosis and severely limits visualization. Hypoechoic areas within the liver adjacent to the gallbladder are characteristic of focal sparing. Correlation with liver function tests and clinical exam recommended to determine further management. GALLBLADDER: No gallstones. No gallbladder wall thickening. COMMON BILE DUCT: Normal in caliber measuring 0.42 cm in diameter. RIGHT KIDNEY: No hydronephrosis. No renal calculi. Limited visualization. The kidney measures 12.3 cm in maximum dimension. FREE FLUID: None. US/US abdomen limited IMPRESSION: Increased hepatic parenchymal heterogeneity and echogenicity could be associated with hepatocellular disease/hepatic steatosis and severely limits visualization. Hypoechoic areas within the liver adjacent to the gallbladder are characteristic of focal sparing. Correlation with liver function tests and clinical exam recommended to determine further management.
== END 2023-06-06 08:11 | disposition home or self-care (01) ==
LOC: HO.HMGCX 08:10
PROVIDERS: PCP Internal Medicine; Visit Provider Internal Medicine
DX: R10.9 Unspecified abdominal pain (principal)
CPT/HCPCS: 76705